=== PATIENT | male | born 1990 | race Caucasian/White ===

== ENCOUNTER 2021-02-20 03:40 | Outpatient (CLI) | payer OTHER, MEDICAID, SELFPAY ==
[2021-02-20 12:58] LABS: Abs Immature Grans 0.01 10^3/uL (0.0-0.06); Absolute Basophil Count 0.03 10^3/uL (0.0-0.2); Absolute Eosinophil Count 0.43 10^3/uL (0.0-0.7); Absolute Lymphocyte Count 2.55 10^3/uL (1.2-3.4); Absolute Monocyte Count 0.57 10^3/uL (0.1-0.8); Absolute Neutrophil Count 3.14 10^3/uL (1.2-6.7); Basophils % 0.4; Eosinophils % 6.4; HCT 47.1 % (40.0-50.0); HGB 16.1 g/dL (13.5-17.5); Immature Grans % 0.1; Lymphocytes % 37.9; MCH 29.7 pg (27.0-33.0); MCHC 34.2 % (32.0-36.0); MCV 86.7 fL (80-95); MPV 8.8 fL (8.0-11.0); Monocytes % 8.5; Neutrophils % 46.7; Nucleated RBC 0 %; Platelet Count 267 10^3/uL (130-400); RBC 5.43 10^6/uL (4.36-5.78); RDW 12.3 % (11.8-14.1); RDW-SD 39.4 fL; WBC 6.73 10^3/uL (4.4-10.8)
[2021-02-20 13:23] LABS: Hemoglobin A1C 5.3 % (<5.7)
[2021-02-20 13:55] LABS: *AMPHETAMINES SCREEN URINE Negative (Negative); *BARBITURATES SCREEN URINE Negative (Negative); *BENZODIAZEPINES SCREEN URINE Negative (Negative); Cannabinoids THC Positive (Negative); Cocaine Screen,Urine Negative (Negative); METHADONE URINE SCREEN Negative (Negative); OPIATES URINE SCREEN Negative (Negative)
[2021-02-20 13:56] LABS: Tricyclic Antidepressants Negative (Negative)
[2021-02-20 15:28] LABS: ALT 27 U/L (16-63); AST 21 U/L (15-37); Albumin 4.3 g/dL (3.4-5.0); Alkaline Phosphatase 59 U/L (46-116); Anion Gap 7.5 mmol/L (3-11); BUN 20 mg/dL (7-18); CO2 29.5 mmol/L (21.0-32.0); Calcium 9.2 mg/dL (8.5-10.1); Calculated LDL 102 mg/dL (<100); Chloride 103 mmol/L (98-107); Cholesterol 165 mg/dL (<200); Ferritin 173 ng/mL (26-388); Glucose 98 mg/dL (74-106); HDL Cholesterol 36 mg/dL (40-60); Magnesium 2.1 mg/dL (1.8-2.4); Potassium 4.5 mmol/L (3.5-5.1); Sodium 140 mmol/L (136-145); TSH 1.87 uIU/mL (0.36-3.74); Total Protein 7.9 g/dL (6.4-8.2); Triglyceride 138 mg/dL (<150)
[2021-02-20 15:48] LABS: FREE T4 0.85 ng/dL (0.76-1.46)
[2021-02-20 15:49] LABS: C-Reactive Protein < 0.05 mg/dL (0.0-0.3)
[2021-02-20 16:36] LABS: Vitamin B12 827 pg/mL (193-986)
[2021-02-20 21:41] LABS: T3,Free 4.6 pg/mL (2.8-5.3)
[2021-02-21 01:31] LABS: Vitamin D 25 Total 39.9 ng/mL (30-100)
== END 2021-02-20 03:41 | disposition home or self-care (01) ==
LOC: LBO 03:42
PROVIDERS: PCP Internal Medicine; Visit Provider Psychiatry & Neurology Psychiatry
DX: F43.10 Post-traumatic stress disorder, unspecified (principal); Z79.899 Other long term (current) drug therapy; F15.20 Other stimulant dependence, uncomplicated; F11.20 Opioid dependence, uncomplicated
CPT/HCPCS: 80053; 80061; 80307; 82306; 82607; 82728; 83036; 83655; 83735; 84439; 84443; 84481; 85025; 86140

== ENCOUNTER 2021-05-28 15:33 | Outpatient (REF) | payer OTHER, MEDICAID, SELFPAY ==
[2021-05-28 16:32] LABS: *BENZODIAZEPINES SCREEN URINE Negative (Negative); METHADONE URINE SCREEN Negative (Negative)
[2021-05-28 16:33] LABS: *AMPHETAMINES SCREEN URINE Positive (Negative); *BARBITURATES SCREEN URINE Negative (Negative); Cannabinoids THC Negative (Negative); Cocaine Screen,Urine Negative (Negative); OPIATES URINE SCREEN Negative (Negative); Tricyclic Antidepressants Negative (Negative)
== END 2021-05-28 15:34 | disposition home or self-care (01) ==
LOC: LBN 15:33
PROVIDERS: PCP Internal Medicine; Visit Provider Nurse Practitioner Psychiatric/Mental Health
DX: F15.20 Other stimulant dependence, uncomplicated (principal)
CPT/HCPCS: 80307

== ENCOUNTER 2021-06-07 15:48 | Emergency (ER) | payer OTHER, MEDICAID, SELFPAY ==
[2021-06-07 15:53] VITALS: BP 125/78; PULSE 73; RESP 18; TEMP 36.4; O2SAT 99
--- NOTE | 2021-06-07 16:12 | W.ED.GENAD ---
Discharge Plan Disposition Patient Disposition: HOME Condition: Good Discharge Details Clinical Impression: Eyebrow laceration Primary Care Provider: Fer Sin ED Provider: Za Gomez Home Meds and New Rx's Prescriptions: No Action No Known Home Meds RF: 0 Discharge Instructions Instructions: Facial Laceration (ED) Additional Instructions: Please keep wound clean and dry. Monitor for signs of infection including redness, warmth, drainage, increased pain, fevers/chills. If you develop these or other new/worsening symptoms please seek care urgently once again. Wound closed with absorbable sutures which should fall out in the next 1-2 weeks. Avoid direct sun exposure to reduce laceration. Please follow up with primary care as needed. Referrals: Fer Sin MD [Primary Care Provider] - Medical Decision Making Patient is a 31-year-old male presents with chief complaint of laceration over the left eye. Patient reports that prior to arrival he was at work when he opened the freezer door and accidentally struck himself in the left eyebrow. Last tetanus was in 2006. He denies other injury at the time of the incident. Did not involve the eye. On exam, patient appears nontoxic. She is a laceration to the subcutaneous tissue in the central aspect of the left eyebrow. No active bleeding. Wound edges are by approximately 5 mm, in part due to swelling. In total, the wound is presently 1 cm in length running vertically through the eyebrow. Does not appear to involve the eye structures themselves. Extraocular movements are intact. Patient I discussed closure options. Will update his tetanus today. With the wound edges being they are, I do feel that suture closure would be most appropriate. We discussed risk/benefit as well as procedural steps. Patient voices understanding and wishes to proceed. Please see procedure note. Patient tolerated procedure well. Wound was copiously irrigated with no foreign body or debris identified. Absorbable sutures placed. Patient and I discussed wound care in depth. Return precautions were discussed, in particular signs of infection. We discussed care of the sutures and how to reduce scarring. All of his questions and concerns were addressed and he is in agreement this plan. HPI General Mode of arrival: ambulatory. Date/Time Provider Initiated Documentation: 06/07/21 16:12. Limitations to Documentation: no limitations. Information obtained by: patient and RN notes reviewed. History of Present Illness 31 year old M presents to the emergency department with the chief complaint of eyebrow laceration, described as moderate, with intensity rated at 5. Quality is described as aching, and is localized to the face. Patient reports no radiation. Patient started experiencing this minute(s) and it has been constant. No relieving factors improve symptom(s), No exacerbating factors reported . Patient notes no other symptoms.. Patient did receive the following treatments prior to arrival, none Related Data Home Medications Medication Instructions Recorded Confirmed Unknown [No Known Home Meds] 06/07/21 06/07/21 Allergies Allergy/AdvReac Type Severity Reaction Status Date / Time pollen Allergy Unknown Uncoded 06/07/21 15:56 General Stated Complaint: Laceration ELIZABETH: 4 Review of Systems Constitutional Constitutional: Reports as per HPI, Denies chills and Denies fever(s) Musculoskeletal Musculoskeletal: Reports as per HPI Integumentary/Breasts Skin/Breast: Reports as per HPI Neurologic Neurologic: Reports as per HPI, Denies sensory deficit and Denies paresthesias [facility] Active Problem List (Updated 06/07/21 @ 16:39 by PIOTR Mina) Patella-femoral syndrome (Acute) Knee pain (Acute) Eyebrow laceration (Acute) Social History Smoking/Tobacco Use Status: Current every day Smoking risk assessment performed?: Yes Alcohol Intake: never Drug use: Never Substance use type: does not use Do you feel safe at home: Yes Do you feel safe in your relationship?: Yes Exam Const General: cooperative, healthy appearing, comfortable, no acute distress and well developed Nutritional Appearance: average body habitus and well nourished Orientation: alert and awake [facility] Head: no palpable skull fracture Ears: hearing grossly normal bilaterally General nose exam: external nose normal Face images: 1. area of laceration. 1 cm in length. Into the subcutaneous tissue. No active bleeding. Small amount of surrounding swelling but no discoloration. No palpable fracture. Swelling and laceration does not extend below the brow, does not involve the eye. Resp Effort & Inspection: normal respiratory effort, able to speak in complete sentences and no respiratory distress Cardio Rate: regular rate Rhythm: regular rhythm Skin Trauma: laceration Neuro General: patient alert and patient awake Cognition: normal cognition Speech: speech normal Gait: normal gait Sensory Exam: no sensory deficits noted Psych Appearance: grossly normal and well kempt Mental Status: mental status grossly normal Speech and Movement: speech and movement normal Course Vital Signs Vital signs: Vital Signs Temperature 36.4 C L 06/07/21 15:53 Pulse 73 06/07/21 15:53 Respiratory Rate 18 06/07/21 15:53 Blood Pressure 125/78 06/07/21 15:53 Pulse Oximetry 99 06/07/21 15:53 Temperature 36.4 C L 06/07/21 15:53 Temperature Source Skin 06/07/21 15:53 Pulse 73 06/07/21 15:53 Respiratory Rate 18 06/07/21 15:53 Blood Pressure 125/78 06/07/21 15:53 Pulse Oximetry 99 06/07/21 15:53 Pain Level 5 06/07/21 15:53 Procedures Laceration Laceration 1: Site: face Side (If applicable): left Size (cm): 1 Description: linear Depth: simple, single layer Local Anesthetic: Lidocaine 1% and with Epi Amount of anesthesia used (mL): 2 Pre-repair: wound explored, irrigated extensively and deep structures intact Skin layer closed with: other (monocryl) Size (cm): 6-0 Number of sutures: 2 Technique: simple, interrupted
--- NOTE | 2021-06-07 16:21 | NUR.NOTE ---
Pt ambulatory to rm #9, provider in to see pt for sutures, NAD noted, order recieved for tdap booster
--- NOTE | 2021-06-07 16:34 | NUR.NOTE ---
Pt given tdap per EMAR, tolerated without complaints, VIS given
== END 2021-06-07 16:43 | disposition home or self-care (01) ==
PROVIDERS: Emergency Provider Physician Assistant; PCP Internal Medicine
DX: S01.112A Laceration without foreign body of left eyelid and periocular area, initial encounter (principal); W20.8XXA Other cause of strike by thrown, projected or falling object, initial encounter; Y99.0 Civilian activity done for income or pay
CPT/HCPCS: 12011; 90471

== ENCOUNTER 2021-11-06 18:50 | Outpatient (REF) | payer OTHER, MEDICAID, SELFPAY ==
[2021-11-08 14:16] LABS: Chlamydia Result Negative (Negative); GC Result Negative (Negative)
== END 2021-11-06 18:51 | disposition home or self-care (01) ==
LOC: NCHCN 18:50
PROVIDERS: PCP Internal Medicine; Visit Provider Family Medicine
DX: Z11.3 Encounter for screening for infections with a predominantly sexual mode of transmission (principal)
CPT/HCPCS: 87491; 87591

== ENCOUNTER 2021-11-17 20:54 | Emergency (ER) | payer OTHER, MEDICAID, SELFPAY ==
[2021-11-17 21:02] VITALS: BP 156/78; PULSE 114; RESP 20; TEMP 37.6; O2SAT 100
--- NOTE | 2021-11-17 21:23 | W.ED.GENAD ---
Discharge Plan Disposition Patient Disposition: HOME Condition: Improving Discharge Details Clinical Impression: Allergic reaction Primary Care Provider: Fer Sin ED Provider: Cnostance Sky Home Meds and New Rx's Prescriptions: No Action Vyvanse 50 mg Capsule 50 mg PO DAILY 0RF Discharge Instructions Instructions: General Allergic Reaction (ED) Additional Instructions: Take Benadryl 1 tablets every 6-8 hours as needed for itching and rash. You may take some Benadryl tomorrow. Don't Do Drugs. Use Hydrocortisone cream once daily. Be seen for trouble breathing or throat closing. Follow up with primary care provider in 3-5 days. Return to ED sooner if any worsening or concerns. Increase oral fluids. Please take Tylenol or Ibuprofen with food every 4-6 hours as needed for pain and swelling. Referrals: Fer Sin MD [Primary Care Provider] - 5 days Medical Decision Making 31-year-old male presents to the ER with chief complaint of suspicious behavior and rash all over his body. He is very restless, does admit to cocaine and alcohol, he does have a generalized erythematous rash that is pruritic and burning. No hives noted. Mild scattered excoriations. Differential diagnosis includes but not limited to strep rash, contact dermatitis, scabies, poison ying, poison oak, reaction to medications/drugs. 50 mg Benadryl IM, 10 mg dexamethasone IM, Pepcid 40 mg p.o., hydrocortisone cream. Rapid strep swab negative. 2231: Patient observed for approximately 2 hours in dept, Family member (sister) here to pick patient up. This text was generated using [employer] dictation system, please disregard any oddities of phrase or misspellings. HPI General Mode of arrival: ambulatory. Date/Time Provider Initiated Documentation: 11/17/21 20:54. Limitations to Documentation: altered mental status (Appears under the influence). Information obtained by: patient, RN notes reviewed and old records reviewed. HPI Narrative: 31-year-old male presents to the ER with chief complaint of rash which began on Thursday and has worsened. He is in accompaniment by a lawn for [employer] for blood draw after some suspicious behavior while at a grocery store. They did do an outpatient blood draw. He does endorse sore throat, burning rash which is bottoms of his feet, patchy areas on his legs, bilateral buttock, bilateral arms, back, and torso. He reports that he does have a stuffy nose. He is speaking in full sentences. No wheezing, no stridor. He does endorse Cocaine use, Reports smoking a vape. He also reports drinking some ETOH tonight. He denies any known contact with plants, denies any contacts with similar rash. Related Data Home Medications Medication Instructions Recorded Confirmed lisdexamfetamine 50 mg capsule 50 mg PO DAILY 11/17/21 11/17/21 (Vyvanse) Allergies Allergy/AdvReac Type Severity Reaction Status Date / Time pollen Allergy Unknown Uncoded 11/17/21 21:05 General Stated Complaint: RashLesion ELIZABETH: 4 Review of Systems Constitutional Constitutional: Reports as per HPI Cardiovascular Cardiovascular: Reports rapid heart rate and Denies dyspnea Respiratory Respiratory: Denies dyspnea and Denies wheezing Gastrointestinal Gastrointestinal: Denies diarrhea, Denies nausea and Denies vomiting Neurologic Neurologic: Reports as per HPI Psychiatric Psychiatric: Reports anxiety, Reports irritability, Denies homicidal ideation and Denies suicidal ideation Allergic/Immunologic Allergic/Immunologic: Reports as per HPI, Reports seasonal rhinorrhea, Denies wheezing and Denies other (Full body rash, burning puritic) PFSH All Active Problems (Updated 11/17/21 @ 21:59 by Constance Sky) Patella-femoral syndrome (Acute) Knee pain (Acute) Eyebrow laceration (Acute) Allergic reaction (Acute) Social History Smoking/Tobacco Use Status: Current every day Tobacco Type: e-cigarettes Smoking risk assessment performed?: Yes Alcohol Intake: current Alcohol Intake frequency: a few times a month Drug use: Never Substance use type: does not use Do you feel safe at home: Yes Do you feel safe in your relationship?: Yes Exam Skin General skin exam: erythema Rashes: rashes noted (Bottoms of feet, dorsum of feet, patches on legs, forearms, back, buttocks,) urticaria diffuse multiple locations borders irregular, color blanching and red and distribution (Soles, Forearms, Back, Buttocks, Posterior thighs) Trauma: abrasion Psych Appearance: disheveled Speech and Movement: pressured speech and restless Mood: anxious mood Affect: anxious affect Course Vital Signs Vital signs: Vital Signs Temperature 37.6 C H 11/17/21 21:02 Pulse 114 H 11/17/21 21:02 Respiratory Rate 20 11/17/21 21:02 Blood Pressure 156/78 H 11/17/21 21:02 Pulse Oximetry 100 11/17/21 21:02 Temperature 37.6 C H 11/17/21 21:02 Pulse 114 H 11/17/21 21:02 Respiratory Rate 20 11/17/21 21:02 Respiratory Effort Non-Labored 11/17/21 21:06 Blood Pressure 156/78 H 11/17/21 21:02 Pulse Oximetry 100 11/17/21 21:02 Pain Level 7 11/17/21 21:02 PAWSS Have you Been Recently Intoxicated or Drunk Within the Last 30 days?: No Have you Ever Experienced Previous Episodes of Alcohol Withdrawal?: No Have you ever Experienced Withdrawal Seizures?: No Have you ever Experienced Delirium Tremens(DT)s?: No Have you ever undergone Alcohol Rehabilitation Treatment (i.e, inpt ot outpatient treatment programs)?: No Have you ever Experienced Blackouts?: No Have you ever Combined Alcohol with other Downers within the last 90 days?: No Have you ever Combined Alcohol with any other Substance of Abuse during the last 90 days?: No Positive Blood Alcohol level on Presentation? [PCS.BAL]: No Evidence of Increased Autonomic Activity (i.e. HR>120, tremor, sweating, agitation, nausea)?: No Result: 0
[2021-11-17] MEDS: diphenhydrAMINE 50 MG/ML VIAL IM (21:42)
[2021-11-17] MEDS: Dexamethasone 10 MG/ML VIAL IM (21:43)
[2021-11-17] MEDS: Famotidine 20 MG TAB 40 MG PO (21:43)
[2021-11-17] MEDS: Hydrocortisone 1% CR 30 GM TUBE TP (22:06)
== END 2021-11-17 22:38 | disposition home or self-care (01) ==
PROVIDERS: Emergency Provider Registered Nurse Emergency; PCP Internal Medicine
DX: T78.49XA Other allergy, initial encounter (principal); X58.XXXA Exposure to other specified factors, initial encounter; R46.89 Other symptoms and signs involving appearance and behavior
CPT/HCPCS: 87880; 96372; 99284; 87081; 99283; J1100; J1200

== ENCOUNTER 2022-01-27 17:51 | Outpatient (REF) | payer MEDICAID, SELFPAY ==
[2022-01-27 15:11] LABS: Lithium 0.6 mmol/l (0.6-1.2)
[2022-01-27 15:24] LABS: BUN 13 mg/dL (7-18); CREATININE 0.9 mg/dL (0.70-1.30); Calcium 9.1 mg/dL (8.5-10.1); Chloride 104 mmol/L (98-107); Glucose 94 mg/dL (74-106); Potassium 4.7 mmol/L (3.5-5.1); Sodium 139 mmol/L (136-145); TSH 6.07 uIU/mL (0.36-3.74)
[2022-01-28 10:42] LABS: FREE T4 0.83 ng/dL (0.76-1.46)
== END 2022-01-27 17:52 | disposition home or self-care (01) ==
LOC: NCHCN 17:51
PROVIDERS: PCP Internal Medicine; Visit Provider Family Medicine
DX: F41.1 Generalized anxiety disorder (principal); F19.10 Other psychoactive substance abuse, uncomplicated; Z51.81 Encounter for therapeutic drug level monitoring; Z79.899 Other long term (current) drug therapy; F10.10 Alcohol abuse, uncomplicated; F17.210 Nicotine dependence, cigarettes, uncomplicated; F11.21 Opioid dependence, in remission; F90.9 Attention-deficit hyperactivity disorder, unspecified type
CPT/HCPCS: 80048; 80178; 84439; 84443